=== PATIENT | female | born 1995 | race Caucasian/White ===

== ENCOUNTER 2021-11-05 13:52 | Emergency (ER) | payer SELFPAY ==
--- NOTE | 2021-11-05 14:10 | NUR ---
CALLED X1. NO SHOW.
--- NOTE | 2021-11-05 14:20 | NUR ---
PT CALLED X2. NO SHOW.
--- NOTE | 2021-11-05 14:44 | NUR ---
CALLED IN PHONE, LEFT VOICEMAIL. MADE AWARE.
== END 2021-11-05 14:10 | disposition left against medical advice (07) ==
LOC: MED 13:52
DX: R11.10 Vomiting, unspecified (principal); Z53.21 Procedure and treatment not carried out due to patient leaving prior to being seen by health care provider